=== PATIENT | male | born 1965 | race Caucasian/White ===

== ENCOUNTER 2019-11-18 19:51 | Emergency (ER) | payer MEDICARE, OTHER ==
--- NOTE | 2019-11-18 20:58 | ED ---
General Adult HPI - General Chief complaint: Skin/Abscess/Foreign Body Stated complaint: R Leg infection Time Seen by Provider: 11/18/19 20:18 Source: patient, RN notes reviewed Mode of arrival: ambulatory Limitations: no limitations - History of Present Illness Initial comments: 54-year-old male with a past medical history COPD, diabetes mellitus, hype rtension presents to the emergency department for a chief complaint of erythema on the right knee. Patient has had an area of erythema for about 3 days on the lateral right knee. States it Is making his legs well. States he can bend his knee without difficulty but is somewhat painful to walk on. Denies fevers or chills. Patient started on Bactrim 2 days ago. He denies history of MRSA. He denies history of IV drug abuse.Patient has no other complaints at this time including shortness of breath, chest pain, abdominal pain, nausea or vomiting, headache, or visual changes. - Related Data Home Medications Medication Instructions Recorded Confirmed Acetaminophen [Tylenol Arthritis] 650 mg PO Q4H 11/18/19 11/18/19 Albuterol Inhaler [Ventolin Hfa 2 puff INHALATION RT-QID PRN 11/18/19 11/18/19 Inhaler] Amitriptyline HCl [Elavil] 150 mg PO HS 11/18/19 11/18/19 Atorvastatin [Lipitor] 40 mg PO HS 11/18/19 11/18/19 Calcium/Magnesium/Zinc 2 tab PO TID PRN 11/18/19 11/18/19 [Amqbbaj-Knlrpqglx-Fhlb Tablet] Carvedilol [Coreg] 6.25 mg PO BID 11/18/19 11/18/19 Chlorpheniramine Maleate 4 mg PO Q4H PRN 11/18/19 11/18/19 [Chlor-Trimeton] Ibuprofen [Motrin] 600 mg PO Q6H PRN 11/18/19 11/18/19 Insulin Detemir [Levemir Flextouch] 40 units SQ ACHS 11/18/19 11/18/19 Multivitamins, Thera [Multivitamin 1 tab PO DAILY 11/18/19 11/18/19 (formulary)] Omeprazole [PriLOSEC] 40 mg PO DAILY 11/18/19 11/18/19 Sertraline [Zoloft] 100 mg PO DAILY 11/18/19 11/18/19 Sulfamethox-Tmp 800-160Mg [Bactrim 1 tab PO Q12HR 11/18/19 11/18/19 DS 800-160 mg] Thiamine [Vitamin B-1] 100 mg PO DAILY 11/18/19 11/18/19 amLODIPine [Norvasc] 5 mg PO DAILY 11/18/19 11/18/19 metFORMIN HCL 1,000 mg PO BID-W/MEALS 11/18/19 11/18/19 traZODone HCL 50 - 150 mg PO HS 11/18/19 11/18/19 Previous Rx's Medication Instructions Recorded Cephalexin [Keflex] 500 mg PO Q6H 10 Days #40 cap 11/18/19 Allergies Allergy/AdvReac Type Severity Reaction Status Date / Time No Known Allergies Allergy Verified 11/18/19 21:21 Review of Systems ROS Statement: Those systems with pertinent positive or pertinent negative responses have been documented in the HPI. ROS Other: All systems not noted in ROS Statement are negative. Past Medical History Past Medical History: COPD, Diabetes Mellitus, Hypertension History of Any Multi-Drug Resistant Organisms: None Reported Past Surgical History: No Surgical Hx Reported Past Psychological History: No Psychological Hx Reported Smoking Status: Current every day smoker Past Alcohol Use History: None Reported Past Drug Use History: None Reported General Exam Limitations: no limitations General appearance: alert, in no apparent distress Head exam: Present: atraumatic, normocephalic, normal inspection Eye exam: Present: normal appearance, PERRL, EOMI. Absent: scleral icterus, conjunctival injection, periorbital swelling ENT exam: Present: normal exam, mucous membranes moist Neck exam: Present: normal inspection. Absent: tenderness, meningismus, lymphadenopathy Respiratory exam: Present: normal lung sounds bilaterally. Absent: respiratory distress, wheezes, rales, rhonchi, stridor Cardiovascular Exam: Present: regular rate, normal rhythm, normal heart sounds. Absent: systolic murmur, diastolic murmur, rubs, gallop, clicks Extremities exam: Present: full ROM (Full range of motion of the right knee. Patient is able to walk on her knee however this causes some mild discomfort.), normal capillary refill (Capillary refill less than 2 seconds in the right lower extremity.), other (Patient has a 3 cm x 3 cm area of erythema over the lateral aspect of the right knee. There is no sizable area for drainage.). Absent: tenderness, pedal edema, joint swelling, calf tenderness Course Vital Signs 11/18/19 20:11 Temperature 98.3 F Pulse Rate 94 Respiratory 18 Rate Blood Pressure 134/85 O2 Sat by Pulse 98 Oximetry Medical Decision Making - Medical Decision Making HPI physical exam is recommended. There is no evidence of incisible area to drain. Vitals are stable. CBC CMP are unremarkable. X-ray of the right knee is negative. Patient was evaluated by Dr. Bell. We will add Keflex. It is likely that [employer] hasn't had enough time to work this patient has been on this less than 48 hours. Patient is at [facility] with nursing staff and they will continue to monitor this. He will return here for any worsening symptoms. - Lab Data Result diagrams: 11/18/19 21:54 11/18/19 21:54 Lab Results 11/18/19 11/18/19 11/18/19 Range/Units 21:54 21:54 21:54 WBC 9.1 (3.8-10.6) k/uL RBC 3.88 L (4.30-5.90) m/uL Hgb 12.2 L (13.0-17.5) gm/dL Hct 36.9 L (39.0-53.0) % MCV 95.1 (80.0-100.0) fL MCH 31.5 (25.0-35.0) pg MCHC 33.1 (31.0-37.0) g/dL RDW 12.6 (11.5-15.5) % Plt Count 313 (150-450) k/uL Neutrophils % 65 % Lymphocytes % 25 % Monocytes % 5 % Eosinophils % 3 % Basophils % 1 % Neutrophils # 5.9 (1.3-7.7) k/uL Lymphocytes # 2.3 (1.0-4.8) k/uL Monocytes # 0.4 (0-1.0) k/uL Eosinophils # 0.3 (0-0.7) k/uL Basophils # 0.1 (0-0.2) k/uL Sodium 137 (137-145) mmol/L Potassium 5.0 (3.5-5.1) mmol/L Chloride 104 (98-107) mmol/L Carbon Dioxide 24 (22-30) mmol/L Anion Gap 9 mmol/L BUN 28 H (9-20) mg/dL Creatinine 0.89 (0.66-1.25) mg/dL Est GFR (CKD-EPI)AfAm >90 (>60 ml/min/1.73 sqM) Est GFR (CKD-EPI)NonAf >90 (>60 ml/min/1.73 sqM) Glucose 93 (74-99) mg/dL Plasma Lactic Acid Surjit 1.4 (0.7-2.0) mmol/L Calcium 9.6 (8.4-10.2) mg/dL Total Bilirubin 0.3 (0.2-1.3) mg/dL AST 28 (17-59) U/L ALT 20 (4-49) U/L Alkaline Phosphatase 104 (38-126) U/L Total Protein 7.5 (6.3-8.2) g/dL Albumin 4.5 (3.5-5.0) g/dL Disposition Clinical Impression: Cellulitis Disposition: HOME SELF-CARE Condition: Poor Instructions (If sedation given, give patient instructions): Cellulitis (ED) Additional Instructions: Please take Keflex in addition to Bactrim. Please follow-up with primary care in 1-2 days. Please return here to the emergency room for any worsening symptoms such as fevers or inability to bend your knee. If redness is spreading past where it is already located then return to the emergency department as well. Prescriptions: Cephalexin [Keflex] 500 mg PO Q6H 10 Days #40 cap Is patient prescribed a controlled substance at d/c from ED?: No Referrals: Lisa Tillman MD [REFERRING] - 1-2 days Time of Disposition: 22:59
[2019-11-18] MEDS ORDERED: cefTRIAXone IN SWFI 1,000 MG/10 ML SYRINGE IVP STA (21:23)
--- NOTE | 2019-11-18 22:03 | XR ---
EXAMINATION TYPE: XR knee complete RT DATE OF EXAM: 11/18/2019 COMPARISON: NONE HISTORY: Right leg abscess TECHNIQUE: 3 views FINDINGS: I see no fracture nor dislocation. Joint spaces are normal. There is no sign of knee joint effusion. Soft tissues appear normal. IMPRESSION: Negative right knee exam. No fracture. No evidence of a soft tissue mass.
[2019-11-18 22:13] LABS: Basophils # (A) 0.1 k/uL (0-0.2); Basophils % (A) 1 %; Eosinophils # (A) 0.3 k/uL (0-0.7); Eosinophils % (A) 3 %; HCT 36.9 % (39.0-53.0); HGB 12.2 gm/dL (13.0-17.5); Lymphocytes # (A) 2.3 k/uL (1.0-4.8); Lymphocytes % (A) 25 %; MCH 31.5 pg (25.0-35.0); MCHC 33.1 g/dL (31.0-37.0); MCV 95.1 fL (80.0-100.0); Mean Platelet Volume 7.2; Monocytes # (A) 0.4 k/uL (0-1.0); Monocytes % (A) 5 %; Neutrophils # (A) 5.9 k/uL (1.3-7.7); Neutrophils % (A) 65 %; Platelet Count 313 k/uL (150-450); RBC 3.88 m/uL (4.30-5.90); RDW 12.6 % (11.5-15.5); WBC 9.1 k/uL (3.8-10.6)
[2019-11-18 22:22] LABS: ALT 20 U/L (4-49); AST 28 U/L (17-59); African American GFR (CKD) >90 (>60 ml/min/1.73 sqM); Albumin 4.5 g/dL (3.5-5.0); Alkaline Phosphatase 104 U/L (38-126); Anion Gap 9 mmol/L; Blood Urea Nitrogen 28 mg/dL (9-20); Calcium 9.6 mg/dL (8.4-10.2); Carbon Dioxide 24 mmol/L (22-30); Chloride 104 mmol/L (98-107); Glucose 93 mg/dL (74-99); Non-African American GFR(CKD) >90 (>60 ml/min/1.73 sqM); Sodium 137 mmol/L (137-145); Total Bilirubin 0.3 mg/dL (0.2-1.3); Total Protein 7.5 g/dL (6.3-8.2)
[2019-11-18 23:47] VITALS: BP 131/82; PULSE 90; RESP 17; TEMP 93.3
== END 2019-11-18 23:43 | disposition home or self-care (01) ==
LOC: EC 19:51
DX: L03.115 Cellulitis of right lower limb (principal); J44.9 Chronic obstructive pulmonary disease, unspecified; E11.9 Type 2 diabetes mellitus without complications; I10 Essential (primary) hypertension; F17.200 Nicotine dependence, unspecified, uncomplicated; Z79.899 Other long term (current) drug therapy; Z79.4 Long term (current) use of insulin
CPT/HCPCS: 36415; 80053; 83605; 85025; 87040; 73562; 99283; 96374; J0696

== ENCOUNTER 2019-11-21 21:53 | Observation (INO) | payer MEDICARE, OTHER ==
--- NOTE | 2019-11-21 23:08 | XR ---
EXAMINATION TYPE: XR knee complete RT DATE OF EXAM: 11/21/2019 COMPARISON: 11/18/2019 HISTORY: Knee pain right knee wo TECHNIQUE: 3 views FINDINGS: I see no fracture nor dislocation. Joint spaces are normal. There is no sign of knee joint effusion. There are no pathologic calcifications. IMPRESSION: Negative right knee exam. No sign of osteomyelitis. No change.
[2019-11-21] MEDS ORDERED: SODIUM CHLORIDE 0.9% 500 ML 500 ML IV STA (23:16)
--- NOTE | 2019-11-21 23:20 | ED ---
Wound/Laceration HPI - General Source: patient Mode of arrival: ambulatory Limitations: no limitations <Rosemary Rudd - Last Filed: 11/22/19 01:33> <Brittany Davis - Last Filed: 11/25/19 17:00> - General Chief Complaint: Wound/Laceration Stated Complaint: Leg Wounds Time Seen by Provider: 11/21/19 23:04 - History of Present Illness Initial Comments: Patient is a 54-year-old male presenting to the emergency Department with complaints of a wound on his right leg, next to his knee. Patient states has been there for a proximal 9-10 days. He was in the ER 4 days ago and was started on Bactrim and Keflex and he has been taking them. Patient states the wound is getting worse, it is now draining yellow, malodorous, drainage. He states his right lower leg is also become swollen and painful. He also had a fever earlier today. Patient is here from [place]. Patient states they would not take him back until his leg wound is cleared. Patient states he lives in [place]. He does admit to being a diabetic, hypertensive. He denies chest pain, shortness of breath, abdominal pain, nausea, vomiting. He has no further complaints at this time. Upon arrival to the ER, his vital signs are stable. (Rosemary Rudd) - Related Data Home Medications Medication Instructions Recorded Confirmed Acetaminophen [Tylenol Arthritis] 650 mg PO Q4H 11/18/19 11/22/19 Albuterol Inhaler [Ventolin Hfa 2 puff INHALATION RT-QID PRN 11/18/19 11/22/19 Inhaler] Amitriptyline HCl [Elavil] 150 mg PO HS 11/18/19 11/22/19 Atorvastatin [Lipitor] 40 mg PO HS@2200 11/18/19 11/22/19 Calcium/Magnesium/Zinc 2 tab PO TID PRN 11/18/19 11/22/19 [Jsizpkr-Ljxueivxg-Vtzd Tablet] Carvedilol [Coreg] 6.25 mg PO BID@0600,1700 11/18/19 11/22/19 Chlorpheniramine Maleate 4 mg PO Q4H PRN 11/18/19 11/22/19 [Chlor-Trimeton] Ibuprofen [Motrin] 600 mg PO Q6H PRN 11/18/19 11/22/19 Insulin Detemir [Levemir Flextouch] 40 units SQ AC-BRKFST 11/18/19 11/22/19 Multivitamins, Thera [Multivitamin 1 tab PO DAILY 11/18/19 11/22/19 (formulary)] Omeprazole [PriLOSEC] 40 mg PO DAILY@59911/18/19 11/22/19 Sertraline [Zoloft] 100 mg PO DAILY@59911/18/19 11/22/19 Sulfamethox-Tmp 800-160Mg [Bactrim 1 tab PO Q12HR 11/18/19 11/22/19 DS 800-160 mg] amLODIPine [Norvasc] 5 mg PO DAILY@59911/18/19 11/22/19 metFORMIN HCL 1,000 mg PO BID-W/MEALS 11/18/19 11/22/19 traZODone HCL 50 - 150 mg PO HS 11/18/19 11/22/19 Insulin Detemir (Levemir) [Levemir] 45 unit SQ HS 11/22/19 11/22/19 Previous Rx's Medication Instructions Recorded Clindamycin [Cleocin] 450 mg PO Q6H 7 Days #28 cap 11/23/19 Nicotine 21Mg/24Hr Patch [Habitrol] 1 patch TRANSDERM DAILY 30 Days 11/23/19 #30 patch Allergies Allergy/AdvReac Type Severity Reaction Status Date / Time No Known Allergies Allergy Verified 11/22/19 06:56 Review of Systems ROS Other: All systems not noted in ROS Statement are negative. <Rosemary Rudd - Last Filed: 11/22/19 01:33> ROS Other: All systems not noted in ROS Statement are negative. <Brittany Davis - Last Filed: 11/25/19 17:00> ROS Statement: Those systems with pertinent positive or pertinent negative responses have been documented in the HPI. Past Medical History Past Medical History: COPD, Diabetes Mellitus, Hypertension History of Any Multi-Drug Resistant Organisms: None Reported Past Surgical History: No Surgical Hx Reported Past Psychological History: No Psychological Hx Reported Smoking Status: Current every day smoker Past Alcohol Use History: None Reported Past Drug Use History: Prescription Drug Abuse <Rosemary Rudd - Last Filed: 11/22/19 01:33> General Exam Limitations: no limitations <Rosemary Rudd - Last Filed: 11/22/19 01:33> - General Exam Comments Initial Comments: GENERAL: Well-appearing, well-nourished and in no acute distress. HEAD: Atraumatic, normocephalic. EYES: Pupils equal round and reactive to light, extraocular movements intact, sclera anicteric, conjunctiva are normal. ENT: TMs normal, nares patent, oropharynx clear without exudates. Moist mucous membranes. NECK: Normal range of motion, supple without lymphadenopathy or JVD. LUNGS: Breath sounds clear to auscultation bilaterally and equal. No wheezes rales or rhonchi. HEART: Regular rate and rhythm without murmurs, rubs or gallops. ABDOMEN: Soft, nontender, normoactive bowel sounds. No guarding, no rebound. No masses appreciated. : Deferred EXTREMITIES: Patient decreased range of motion of his right knee secondary to pain and swelling. He does have some mild to moderate swelling of his right lower leg. No clubbing or cyanosis. NEUROLOGICAL: Normal speech, normal gait. PSYCH: Normal mood, normal affect. SKIN: Warm, Dry, normal turgor. Patient has a 1.5cm x 1.5cm wound to his lateral rig ht knee that is draining yellow, purulent fluid. His knee is warm to the touch, his right lower leg is swelling compared to left. There is some erythematous around the area. (Rosemary Rudd) Course Vital Signs 11/21/19 11/22/19 11/22/19 21:55 06:23 08:58 Temperature 98.1 F 98.0 F Pulse Rate 85 80 72 Respiratory 17 17 18 Rate Blood Pressure 131/77 130/70 129/77 O2 Sat by Pulse 98 97 96 Oximetry 11/22/19 11/22/19 11/22/19 08:59 09:00 10:00 Temperature Pulse Rate 74 70 72 Respiratory 17 17 17 Rate Blood Pressure 134/86 134/86 125/74 O2 Sat by Pulse 97 97 97 Oximetry 11/22/19 11:00 Temperature Pulse Rate 70 Respiratory 17 Rate Blood Pressure 112/63 O2 Sat by Pulse 97 Oximetry Medical Decision Making - Lab Data Result diagrams: 11/21/19 23:07 11/21/19 23:07 <Rosemary Rudd - Last Filed: 11/22/19 01:33> - Lab Data Result diagrams: 11/22/19 07:27 11/22/19 07:27 <Brittany Davis - Last Filed: 11/25/19 17:00> - Medical Decision Making Patient is a 54-year-old male with history of diabetes, hypertension presenting with a wound on his right knee that has failed outpatient antibiotics, Bactrim and Keflex. He had a fever today, his vitals are stable upon arrival. Exam reveals an abscess to the right lateral knee, 1.5 cm x 1.5 cm that is draining purulent fluid as well as some erythematous extending down his right leg as well as some swelling. Lab work shows a normal white count, lactic acid is 1.2, CRP is 17.7. Knee x-ray shows no acute abnormalities. Patient was started on Rocephin, he will be admitted for failed outpatient treatment. Patient was accepted by Dr. Gamino. He is in agreement with this plan of care. Case d iscussed with Dr. Davis. (Rosemary Rudd) I was available for consultation in the emergency department. The history and physical exam were done by the midlevel provider. I was consulted for this patients care. I reviewed the case with the midlevel provider and based on their presentation of the patient, I agree with the assessment, medical decision making and plan of care as documented. Chart was dictated using [employer] dictation software. Attempts were made to mayo ect any dictation errors however some typographical errors may persist. Patient was seen during a national state of emergency due to the Covid-19 pandemic. (Brittany Davis) - Lab Data Lab Results 11/21/19 11/21/19 11/21/19 Range/Units 23:06 23:07 23:07 WBC 8.6 (3.8-10.6) k/uL RBC 3.58 L (4.30-5.90) m/uL Hgb 11.5 L (13.0-17.5) gm/dL Hct 34.6 L (39.0-53.0) % MCV 96.7 (80.0-100.0) fL MCH 32.0 (25.0-35.0) pg MCHC 33.1 (31.0-37.0) g/dL RDW 12.5 (11.5-15.5) % Plt Count 297 (150-450) k/uL Neutrophils % 62 % Lymphocytes % 25 % Monocytes % 6 % Eosinophils % 4 % Basophils % 1 % Neutrophils # 5.3 (1.3-7.7) k/uL Lymphocytes # 2.2 (1.0-4.8) k/uL Monocytes # 0.5 (0-1.0) k/uL Eosinophils # 0.4 (0-0.7) k/uL Basophils # 0.1 (0-0.2) k/uL ESR 20 H (0-15) mm/hr Sodium 135 L (137-145) mmol/L Potassium 4.4 (3.5-5.1) mmol/L Chloride 102 (98-107) mmol/L Carbon Dioxide 26 (22-30) mmol/L Anion Gap 7 mmol/L BUN 23 H (9-20) mg/dL Creatinine 0.92 (0.66-1.25) mg/dL Est GFR (CKD-EPI)AfAm >90 (>60 ml/min/1.73 sqM) Est GFR (CKD-EPI)NonAf >90 (>60 ml/min/1.73 sqM) Glucose 102 H (74-99) mg/dL Plasma Lactic Acid Surjit (0.7-2.0) mmol/L Calcium 9.1 (8.4-10.2) mg/dL Total Bilirubin 0.1 L (0.2-1.3) mg/dL AST 43 (17-59) U/L ALT 36 (4-49) U/L Alkaline Phosphatase 139 H (38-126) U/L C-Reactive Protein 17.7 H (<10.0) mg/L Total Protein 6.7 (6.3-8.2) g/dL Albumin 3.9 (3.5-5.0) g/dL 11/21/19 Range/Units 23:07 WBC (3.8-10.6) k/uL RBC (4.30-5.90) m/uL Hgb (13.0-17.5) gm/dL Hct (39.0-53.0) % MCV (80.0-100.0) fL MCH (25.0-35.0) pg MCHC (31.0-37.0) g/dL RDW (11.5-15.5) % Plt Count (150-450) k/uL Neutrophils % % Lymphocytes % % Monocytes % % Eosinophils % % Basophils % % Neutrophils # (1.3-7.7) k/uL Lymphocytes # (1.0-4.8) k/uL Monocytes # (0-1.0) k/uL Eosinophils # (0-0.7) k/uL Basophils # (0-0.2) k/uL ESR (0-15) mm/hr Sodium (137-145) mmol/L Potassium (3.5-5.1) mmol/L Chloride (98-107) mmol/L Carbon Dioxide (22-30) mmol/L Anion Gap mmol/L BUN (9-20) mg/dL Creatinine (0.66-1.25) mg/dL Est GFR (CKD-EPI)AfAm (>60 ml/min/1.73 sqM) Est GFR (CKD-EPI)NonAf (>60 ml/min/1.73 sqM) Glucose (74-99) mg/dL Plasma Lactic Acid Surjit 1.2 (0.7-2.0) mmol/L Calcium (8.4-10.2) mg/dL Total Bilirubin (0.2-1.3) mg/dL AST (17-59) U/L ALT (4-49) U/L Alkaline Phosphatase (38-126) U/L C-Reactive Protein (<10.0) mg/L Total Protein (6.3-8.2) g/dL Albumin (3.5-5.0) g/dL Disposition Decision Date: 11/22/19 Decision Time: :29 <Rosemary Rudd - Last Filed: 11/22/19 01:33> <Brittany Davis - Last Filed: 11/25/19 17:00> Clinical Impression: Cellulitis and abscess of right leg Disposition: ADMITTED IP TO THIS [facility] Condition: Stable
[2019-11-21 23:37] LABS: Basophils # (A) 0.1 k/uL (0-0.2); Basophils % (A) 1 %; Eosinophils # (A) 0.4 k/uL (0-0.7); Eosinophils % (A) 4 %; HCT 34.6 % (39.0-53.0); HGB 11.5 gm/dL (13.0-17.5); Lymphocytes # (A) 2.2 k/uL (1.0-4.8); Lymphocytes % (A) 25 %; MCHC 33.1 g/dL (31.0-37.0); MCV 96.7 fL (80.0-100.0); Mean Platelet Volume 7.2; Monocytes # (A) 0.5 k/uL (0-1.0); Monocytes % (A) 6 %; Neutrophils # (A) 5.3 k/uL (1.3-7.7); Neutrophils % (A) 62 %; Platelet Count 297 k/uL (150-450); RBC 3.58 m/uL (4.30-5.90); RDW 12.5 % (11.5-15.5); WBC 8.6 k/uL (3.8-10.6)
[2019-11-21 23:58] LABS: Anion Gap 7 mmol/L; Blood Urea Nitrogen 23 mg/dL (9-20); Carbon Dioxide 26 mmol/L (22-30); Chloride 102 mmol/L (98-107); Glucose 102 mg/dL (74-99); Potassium 4.4 mmol/L (3.5-5.1); Sodium 135 mmol/L (137-145)
[2019-11-21 23:59] LABS: ALT 36 U/L (4-49); AST 43 U/L (17-59); African American GFR (CKD) >90 (>60 ml/min/1.73 sqM); Albumin 3.9 g/dL (3.5-5.0); Alkaline Phosphatase 139 U/L (38-126); C Reactive Protein 17.7 mg/L (<10.0); Calcium 9.1 mg/dL (8.4-10.2); Non-African American GFR(CKD) >90 (>60 ml/min/1.73 sqM); Total Bilirubin 0.1 mg/dL (0.2-1.3); Total Protein 6.7 g/dL (6.3-8.2)
[2019-11-22] MEDS ORDERED: KETOROLAC 30 MG/ML 1 ML VIAL IVP STA (01:24)
[2019-11-22] MEDS ORDERED: ONDANSETRON 4 MG/2 ML VIAL IVP PRN (01:29)
[2019-11-22] MEDS ORDERED: ACETAMINOPHEN TAB 325 MG TAB PO PRN (01:29)
[2019-11-22] MEDS ORDERED: KETOROLAC 30 MG/ML 1 ML VIAL IVP PRN (01:29)
[2019-11-22] MEDS ORDERED: NALOXONE 0.4 MG/ML 1 ML VIAL IV PRN (01:29)
[2019-11-22] MEDS: SODIUM CHLORIDE 0.9% 1,000 ML IV SCH ×2 (02:01→19:23)
--- NOTE | 2019-11-22 05:12 | P.HPIM ---
History of Present Illness H&P Date: 11/22/19 The patient was seen and examined in the emergency room at 3 AM on 11/21 Patient is a 54-year-old male with a PMH of COPD, hypertension, type II DM, and possible CHF presented to the ED from [place] with complaints of right leg draining ulcer. The patient notes that the ulcer initially appeared roughly 9- 10 days ago, for which he was seen in the ED on 11/18, and was discharged back with Keflex and Bactrim. He reports compliance with the medications, though reports that the ulcer has worsened and now is draining a yellow malodorous discharge. He notes that his entire right leg feels swollen and painful. He reported feeling some chills earlier today, though otherwise denied any addition al complaints. He is able to bear weight on the leg, though notes that it is painful. He denied trauma to the site, though did report a history of multiple ulcers in different areas including his legs and arms, for which he never sought medical attention. Denied IV drug use, and reports that he is at [place] due to prescription drug abuse. He denied any additional complaints including chest pain, shortness of breath, fever, or chills. Denied cough, nausea, vomiting, or palpitations. Denied abdominal pain or diarrhea. In the ED, a right knee x-ray was unremarkable. Laboratory evaluation revealed a WBC count of 8.6, hemoglobin 11.5, platelets 97, sodium 135, potassium 4.4, BUN 23, creatinine 0.92, glucose 102, CRP 17.7, with alkaline phosphatase 139. He is being admitted for right leg cellulitis with failed outpatient therapy. Review of Systems Pertinent positives and negatives as discussed in HPI, a complete review of systems was performed and all other systems are negative. Past Medical History Past Medical History: COPD, Diabetes Mellitus, Hypertension History of Any Multi-Drug Resistant Organisms: None Reported Past Surgical History: No Surgical Hx Reported Past Psychological History: No Psychological Hx Reported Smoking Status: Current every day smoker Past Alcohol Use History: None Reported Past Drug Use History: Prescription Drug Abuse Medications and Allergies Home Medications Medication Instructions Recorded Confirmed Type Acetaminophen [Tylenol Arthritis] 650 mg PO Q4H 11/18/19 11/18/19 History Albuterol Inhaler [Ventolin Hfa 2 puff INHALATION RT-QID PRN 11/18/19 11/18/19 History Inhaler] Amitriptyline HCl [Elavil] 150 mg PO HS 11/18/19 11/18/19 History Atorvastatin [Lipitor] 40 mg PO HS 11/18/19 11/18/19 History Calcium/Magnesium/Zinc 2 tab PO TID PRN 11/18/19 11/18/19 History [Ebixzfd-Lmmznqeby-Xhjk Tablet] Carvedilol [Coreg] 6.25 mg PO BID 11/18/19 11/18/19 History Cephalexin [Keflex] 500 mg PO Q6H 10 Days #40 cap 11/18/19 Rx Chlorpheniramine Maleate 4 mg PO Q4H PRN 11/18/19 11/18/19 History [Chlor-Trimeton] Ibuprofen [Motrin] 600 mg PO Q6H PRN 11/18/19 11/18/19 History Insulin Detemir [Levemir Flextouch] 40 units SQ ACHS 11/18/19 11/18/19 History Multivitamins, Thera [Multivitamin 1 tab PO DAILY 11/18/19 11/18/19 History (formulary)] Omeprazole [PriLOSEC] 40 mg PO DAILY 11/18/19 11/18/19 History Sertraline [Zoloft] 100 mg PO DAILY 11/18/19 11/18/19 History Sulfamethox-Tmp 800-160Mg [Bactrim 1 tab PO Q12HR 11/18/19 11/18/19 History DS 800-160 mg] Thiamine [Vitamin B-1] 100 mg PO DAILY 11/18/19 11/18/19 History amLODIPine [Norvasc] 5 mg PO DAILY 11/18/19 11/18/19 History metFORMIN HCL 1,000 mg PO BID-W/MEALS 11/18/19 11/18/19 History traZODone HCL 50 - 150 mg PO HS 11/18/19 11/18/19 History Allergies Allergy/AdvReac Type Severity Reaction Status Date / Time No Known Allergies Allergy Verified 11/18/19 21:21 Physical Exam Vitals: Vital Signs Temp Pulse Resp BP Pulse Ox 11/21/19 21:55 98.1 F 85 17 131/77 98 Intake and Output 11/21/19 11/21/19 11/22/19 14:59 22:59 06:59 Other: Weight 104.326 kg General: non toxic, no distress, appears at stated age, obese Derm: Right leg lateral to the knee ulcer 2 cm circular with surrounding erythema and warmth with purulent drainage, warm, dry Head: atraumatic, normocephalic, symmetric Eyes: EOMI, no lid lag, anicteric sclera, pupils equal round reactive to light ENT: Nose and ears atraumatic, no thrush, no pharyngeal erythema Neck: No thyromegaly, no cervical lymphadenopathy, trachea midline, supple Mouth: no lip lesion, mucus membranes moist Cardiovascular: S1S2 reg, no murmur, positive posterior tibial pulse bilateral, no edema, capillary refill less than 2 seconds Lungs: CTA bilateral, no rhonchi, no rales , no accessory muscle use Abdominal: soft, nontender to palpation, no guarding, no appreciable organomegaly, normal bowel sounds Ext: no gross muscle atrophy, muscle strength 5 out of 5 in all 4 extremities grossly, right leg mild tenderness on palpation, overlying skin not tense with pulses palpable bilaterally, no contractures, Neuro: CN II-XI grossly intact, light touch intact all 4 extremities, finger to nose within normal limits, Psych: Alert, oriented, appropriate affect Results CBC & Chem 7: 11/21/19 23:07 11/21/19 23:07 Labs: Abnormal Lab Results - Last 24 Hours (Table) 11/21/19 11/21/19 11/21/19 Range/Units 23:06 23:07 23:07 RBC 3.58 L (4.30-5.90) m/uL Hgb 11.5 L (13.0-17.5) gm/dL Hct 34.6 L (39.0-53.0) % ESR 20 H (0-15) mm/hr Sodium 135 L (137-145) mmol/L BUN 23 H (9-20) mg/dL Glucose 102 H (74-99) mg/dL Total Bilirubin 0.1 L (0.2-1.3) mg/dL Alkaline Phosphatase 139 H (38-126) U/L C-Reactive Protein 17.7 H (<10.0) mg/L Assessment and Plan Plan: Right leg cellulitis, failed outpatient therapy -Start on Clindamycin -Follow up blood cultures -Consult infectious disease Type II DM -Check A1c -Lispro insulin sliding scale and blood glucose monitoring Chronic conditions: Hypertension, hyperlipidemia, COPD -Continue with home meds DVT prophylaxis -Heparin subq The patient is admitted with an anticipated less than 2 midnight stay for evaluation of cellulitis CODE STATUS: Full Code Discussed with: Patient Anticipated discharge date: 1-[address]: [place] A total of 35 minutes was spent on the care of this complex patient more than 5 0% of the time was spent in counseling and care coordination.
[2019-11-22] MEDS: CLINDAMYCIN 600 MG in DEXTROSE 5% IN WATER 50 ML IVPB SCH ×8 (06:24→23:47)
[2019-11-22 07:43] LABS: HCT 34.3 % (39.0-53.0); HGB 11.3 gm/dL (13.0-17.5); MCH 31.4 pg (25.0-35.0); MCV 94.9 fL (80.0-100.0); Mean Platelet Volume 7.3; Platelet Count 274 k/uL (150-450); RBC 3.61 m/uL (4.30-5.90); RDW 12.6 % (11.5-15.5); WBC 5.2 k/uL (3.8-10.6)
[2019-11-22 08:06] LABS: African American GFR (CKD) >90 (>60 ml/min/1.73 sqM); Anion Gap 6 mmol/L; Blood Urea Nitrogen 20 mg/dL (9-20); Calcium 8.6 mg/dL (8.4-10.2); Carbon Dioxide 26 mmol/L (22-30); Chloride 104 mmol/L (98-107); Glucose 154 mg/dL (74-99); Non-African American GFR(CKD) >90 (>60 ml/min/1.73 sqM); Potassium 4.2 mmol/L (3.5-5.1); Sodium 136 mmol/L (137-145)
[2019-11-22 09:30] LABS: Glucose,Whole Blood 132 mg/dL (75-99)
[2019-11-22] MEDS: INSULIN ASPART (NovoLOG) 100 UNIT/ML VIAL SQ SCH ×3 (09:32→18:06)
[2019-11-22] MEDS: HEPARIN SODIUM,PORCINE 5,000 UNIT/ML 1 ML VIAL SQ SCH ×3 (09:32→23:47)
[2019-11-22 13:01] LABS: Hemoglobin A1C 7.7 % (4.0-6.0)
[2019-11-22 17:36] LABS: Glucose,Whole Blood 244 mg/dL (75-99)
[2019-11-22] MEDS: NICOTINE 21MG/24HR PATCH TRANSDERM SCH (21:37)
--- NOTE | 2019-11-22 23:41 | P.CONS ---
History of Present Illness - Reason for Consult Consult date: 11/22/19 Right lateral leg cellulitis Requesting physician: Prakash Gamino - Chief Complaint Right leg pain swelling redness x few days - History of Present Illness Patient is a 54-year-old male currently undergoing rehab at [facility] has been brought into the ER for evaluation of right lateral leg pain swelling and redness that has been going on for the last few days patient denies having history of any trauma. Has started as a pimple that has gradually increased in size to becoming painful swollen and red and she described the pain to be throbbing on standard tendency with the loculated radiation the decision swelling and redness but no drainage patient was seen for similar symptom in this year about 4 days ago and the patient was advised oral Keflex and Bactrim DS however the patient did not have any improvement and the patient was brought back to the Hospital for further management of the same, patient wound to the has been afebrile his white count has been normal he did have x-rays of the leg which were negative for any bony changes patient has been started on clindamycin IV 600 every 8 infection it was consulted for further management of antibiotic therapy patient does report overall improvement in the pain swelling since he has been started on antibiotics Review of Systems Positive point has been mentioned in the HPI rest of the systems are negative Past Medical History Past Medical History: Coronary Artery Disease (CAD), COPD, CVA/TIA, Diabetes Mellitus, Eye Disorder, GERD/Reflux, Hyperlipidemia, Hypertension, Pneumonia, Renal Disease Additional Past Medical History / Comment(s): IDDM type II, neuropathy bilateral hands/legs and feet, TIA, bilateral glaucoma, benign colon polyps, recent constipation, nephrolithiasis-passed on his own, chronic low back pain-PT REQUESTS NO NARCOTICS TO BE GIVEN TO HIM. History of Any Multi-Drug Resistant Organisms: None Reported Past Surgical History: Heart Catheterization Additional Past Surgical History / Comment(s): Colonoscopy with benign polypectomies. Past Anesthesia/Blood Transfusion Reactions: No Reported Reaction Smoking Status: Current every day smoker - Past Family History Father Family Medical History: Cancer Additional Family Medical History / Comment(s): Father from cancer-pt cannot recall type. Mother Family Medical History: No Reported History Additional Family Medical History / Comment(s): Mother lived to be 83 yrs old. Medications and Allergies Home Medications Medication Instructions Recorded Confirmed Type Acetaminophen [Tylenol Arthritis] 650 mg PO Q4H 11/18/19 11/22/19 History Albuterol Inhaler [Ventolin Hfa 2 puff INHALATION RT-QID PRN 11/18/19 11/22/19 History Inhaler] Amitriptyline HCl [Elavil] 150 mg PO HS 11/18/19 11/22/19 History Atorvastatin [Lipitor] 40 mg PO HS@2200 11/18/19 11/22/19 History Calcium/Magnesium/Zinc 2 tab PO TID PRN 11/18/19 11/22/19 History [Smphknx-Bvjpoqzkb-Ufja Tablet] Carvedilol [Coreg] 6.25 mg PO BID@0600,1700 11/18/19 11/22/19 History Chlorpheniramine Maleate 4 mg PO Q4H PRN 11/18/19 11/22/19 History [Chlor-Trimeton] Ibuprofen [Motrin] 600 mg PO Q6H PRN 11/18/19 11/22/19 History Insulin Detemir [Levemir Flextouch] 40 units SQ AC-BRKFST 11/18/19 11/22/19 History Multivitamins, Thera [Multivitamin 1 tab PO DAILY 11/18/19 11/22/19 History (formulary)] Omeprazole [PriLOSEC] 40 mg PO DAILY@59911/18/19 11/22/19 History Sertraline [Zoloft] 100 mg PO DAILY@59911/18/19 11/22/19 History Sulfamethox-Tmp 800-160Mg [Bactrim 1 tab PO Q12HR 11/18/19 11/22/19 History DS 800-160 mg] amLODIPine [Norvasc] 5 mg PO DAILY@59911/18/19 11/22/19 History metFORMIN HCL 1,000 mg PO BID-W/MEALS 11/18/19 11/22/19 History traZODone HCL 50 - 150 mg PO HS 11/18/19 11/22/19 History Insulin Detemir (Levemir) [Levemir] 45 unit SQ HS 11/22/19 11/22/19 History Allergies Allergy/AdvReac Type Severity Reaction Status Date / Time No Known Allergies Allergy Verified 11/22/19 06:56 Physical Exam Vitals: Vital Signs Temp Pulse Resp BP Pulse Ox 11/22/19 11:00 70 17 112/63 97 11/22/19 10:00 72 17 125/74 97 11/22/19 09:00 70 17 134/86 97 11/22/19 08:59 74 17 134/86 97 11/22/19 08:58 98.0 F 72 18 129/77 96 11/22/19 06:23 80 17 130/70 97 11/21/19 21:55 98.1 F 85 17 131/77 98 Intake and Output 11/22/19 11/22/19 11/22/19 06:59 14:59 22:59 Other: Weight 104.326 kg GENERAL DESCRIPTION: Middle-aged male lying in bed, no distress. No tachypnea or accessory muscle of respiration use. HEENT: Shows Pallor , no scleral icterus. Oral mucous membrane is dry. No pharyngeal erythema or thrush NECK: Trachea central, no thyromegaly. LUNGS: Unlabored breathing. Clear to auscultation anteriorly. No wheeze or crackle. HEART: S1, S2, regular rate and rhythm. No loud murmur ABDOMEN: Soft, no tenderness , guarding or rigidity, no organomegaly EXTREMITIES: No edema of feet. Right lateral leg just below the knee did have an area of induration and swelling and redness but no purulent drainage SKIN: No rash, no masses palpable. NEUROLOGICAL: The patient is awake, alert, oriented x3, mood and affect normal. Results CBC & Chem 7: 11/22/19 07:27 11/22/19 07:27 Labs: Abnormal Lab Results - Last 24 Hours (Table) 11/21/19 11/21/19 11/21/19 Range/Units 23:06 23:07 23:07 RBC 3.58 L (4.30-5.90) m/uL Hgb 11.5 L (13.0-17.5) gm/dL Hct 34.6 L (39.0-53.0) % ESR 20 H (0-15) mm/hr Sodium 135 L (137-145) mmol/L BUN 23 H (9-20) mg/dL Glucose 102 H (74-99) mg/dL POC Glucose (mg/dL) (75-99) mg/dL Hemoglobin A1c (4.0-6.0) % Total Bilirubin 0.1 L (0.2-1.3) mg/dL Alkaline Phosphatase 139 H (38-126) U/L C-Reactive Protein 17.7 H (<10.0) mg/L 11/22/19 11/22/19 11/22/19 Range/Units 07:27 07:27 07:29 RBC 3.61 L (4.30-5.90) m/uL Hgb 11.3 L (13.0-17.5) gm/dL Hct 34.3 L (39.0-53.0) % ESR (0-15) mm/hr Sodium 136 L (137-145) mmol/L BUN (9-20) mg/dL Glucose 154 H (74-99) mg/dL POC Glucose (mg/dL) (75-99) mg/dL Hemoglobin A1c 7.7 H (4.0-6.0) % Total Bilirubin (0.2-1.3) mg/dL Alkaline Phosphatase (38-126) U/L C-Reactive Protein (<10.0) mg/L 11/22/19 Range/Units 09:28 RBC (4.30-5.90) m/uL Hgb (13.0-17.5) gm/dL Hct (39.0-53.0) % ESR (0-15) mm/hr Sodium (137-145) mmol/L BUN (9-20) mg/dL Glucose (74-99) mg/dL POC Glucose (mg/dL) 132 H (75-99) mg/dL Hemoglobin A1c (4.0-6.0) % Total Bilirubin (0.2-1.3) mg/dL Alkaline Phosphatase (38-126) U/L C-Reactive Protein (<10.0) mg/L Assessment and Plan Assessment: 1- patient with right lower extremity cellulitis in this patient did have an area of folliculitis on the right lateral leg below the knee likely the source of this cellulitis failing outpatient oral Bactrim and Keflex therapy in this patient currently undergoing rehab assisted her heart likely dealing with community associated MRSA the symptoms responded to clindamycin (1) Cellulitis and abscess of right leg Current Visit: Yes Status: Acute Code(s): L03.115 - CELLULITIS OF RIGHT LOWER LIMB; L02.415 - CUTANEOUS ABSCESS OF RIGHT LOWER LIMB SNOMED Code(s): 746743729 Plan: 1- year daily the patient on clindamycin 600 IV every 8 hours in view of clinical response 2-if the area started to drain to obtain culture 3-if the patient continued to improve to finish therapy with oral clindamycin 300 mg every 8 hours for 7 days We will follow on clinical condition and cultures to further adjust medication if needed Thank you for this consultation will follow this patient with you Time with Patient: Greater than 30
[2019-11-23] MEDS: CLINDAMYCIN 600 MG in DEXTROSE 5% IN WATER 50 ML IVPB SCH ×2 (06:10)
[2019-11-23 06:20] LABS: Glucose,Whole Blood 240 mg/dL (75-99)
[2019-11-23] MEDS: INSULIN ASPART (NovoLOG) 100 UNIT/ML VIAL SQ SCH (07:49)
[2019-11-23] MEDS: HEPARIN SODIUM,PORCINE 5,000 UNIT/ML 1 ML VIAL SQ SCH (07:50)
[2019-11-23] MEDS: NICOTINE 21MG/24HR PATCH TRANSDERM SCH (07:50)
[2019-11-23] MEDS: SODIUM CHLORIDE 0.9% 1,000 ML IV SCH (07:50)
[2019-11-23] MEDS ORDERED: NICOTINE 21MG/24HR PATCH TRANSDERM SCH (09:00)
[2019-11-23 09:01] VITALS: BP 144/86; PULSE 83; RESP 16; TEMP 98.2
--- NOTE | 2019-11-23 10:44 | P.DS ---
Providers Date of admission: 11/22/19 01:29 Expected date of discharge: 11/23/19 Attending physician: Prakash Gamino MD Consults: 11/22/19 05:10 Consult Physician Routine Consulting Provider: Shyann Mary Consult Reason/Comments: cellulitis, r leg ulcer Do you want consulting provider notified?: Yes Primary care physician: Stated None Hospital Course: 54-year-old male with a PMH of COPD, hypertension, type II DM, and possible CHF presented to the ED from [facility] with complaints of right leg draining ulcer. The patient notes that the ulcer initially appeared roughly 9-10 days ago, for which he was seen in the ED on 11/18, and was discharged back with Keflex and Bactrim. He reports compliance with the medications, though reports that the ulcer has worsened and was draining a yellow malodorous discharge. He noted that his entire right leg feels swollen and painful. He reported feeling some chills, though otherwise denied any additional complaints. He denied trauma to the site, though did report a history of multiple ulcers in different areas including his legs and arms, for which he never sought medical attention. Denied IV drug use, and reports that he is at [facility] due to prescription drug abuse. He denied any additional complaints including chest pain, shortness of breath, fever, or chills. Denied cough, nausea, vomiting, or palpitations. Denied abdominal pain or diarrhea. In the ED, a right knee x-ray was unremarkable. Exam was significant for a 2 x 2 centimeters furuncle in the right side of the knee. There was no purulent discharge noted. Laboratory evaluation revealed a WBC count of 8.6, hemoglobin 11.5, platelets 97, sodium 135, potassium 4.4, BUN 23, creatinine 0.92, glucose 102, CRP 17.7, with alkaline phosphatase 139. He is being admitted for right leg cellulitis with failed outpatient therapy. Patient was started on IV clindamycin. There was not anything to drain from that furuncle to culture. Patient improved with treatment with IV clindamycin. Today is doing much better. He did not have any fevers throughout the course of the hospitalization. Dr. mary from [place] saw the patient and agreed with the management. He will be discharged home in a stable condition. A prescription for oral clindamycin was provided for him. Patient Condition at Discharge: Stable Plan - Discharge Summary Discharge Rx Participant: No New Discharge Prescriptions: New Nicotine 21Mg/24Hr Patch [Habitrol] 1 patch TRANSDERM DAILY 30 Days #30 patch Clindamycin [Cleocin] 450 mg PO Q6H 7 Days #28 cap Continue metFORMIN HCL 1,000 mg PO BID-W/MEALS Omeprazole [PriLOSEC] 40 mg PO DAILY@0600 traZODone HCL 50 - 150 mg PO HS amLODIPine [Norvasc] 5 mg PO DAILY@0600 Atorvastatin [Lipitor] 40 mg PO HS@2200 Albuterol Inhaler [Ventolin Hfa Inhaler] 2 puff INHALATION RT-QID PRN PRN Reason: ASTHMA Calcium/Magnesium/Zinc [Hveyrlh-Fecwbjgqh-Sxea Tablet] 2 tab PO TID PRN PRN Reason: CRAMPS Ibuprofen [Motrin] 600 mg PO Q6H PRN PRN Reason: Pain Chlorpheniramine Maleate [Chlor-Trimeton] 4 mg PO Q4H PRN PRN Reason: Allergy Symptoms Acetaminophen [Tylenol Arthritis] 650 mg PO Q4H Sulfamethox-Tmp 800-160Mg [Bactrim DS 800-160 mg] 1 tab PO Q12HR Insulin Detemir [Levemir Flextouch] 40 units SQ AC-BRKFST Carvedilol [Coreg] 6.25 mg PO BID@0600,1700 Amitriptyline HCl [Elavil] 150 mg PO HS Sertraline [Zoloft] 100 mg PO DAILY@0600 Multivitamins, Thera [Multivitamin (formulary)] 1 tab PO DAILY Insulin Detemir (Levemir) [Levemir] 45 unit SQ HS Discharge Medication List Acetaminophen [Tylenol Arthritis] 650 mg PO Q4H 11/18/19 [History] Albuterol Inhaler [Ventolin Hfa Inhaler] 2 puff INHALATION RT-QID PRN 11/18/19 [History] Amitriptyline HCl [Elavil] 150 mg PO HS 11/18/19 [History] Atorvastatin [Lipitor] 40 mg PO HS@2200 11/18/19 [History] Calcium/Magnesium/Zinc [Djooddp-Zruxbtcjj-Chvp Tablet] 2 tab PO TID PRN 11/18/19 [History] Carvedilol [Coreg] 6.25 mg PO BID@0600,1700 11/18/19 [History] Chlorpheniramine Maleate [Chlor-Trimeton] 4 mg PO Q4H PRN 11/18/19 [History] Ibuprofen [Motrin] 600 mg PO Q6H PRN 11/18/19 [History] Insulin Detemir [Levemir Flextouch] 40 units SQ AC-BRKFST 11/18/19 [History] Multivitamins, Thera [Multivitamin (formulary)] 1 tab PO DAILY 11/18/19 [History] Omeprazole [PriLOSEC] 40 mg PO DAILY@0600 11/18/19 [History] Sertraline [Zoloft] 100 mg PO DAILY@59911/18/19 [History] Sulfamethox-Tmp 800-160Mg [Bactrim DS 800-160 mg] 1 tab PO Q12HR 11/18/19 [History] amLODIPine [Norvasc] 5 mg PO DAILY@0600 11/18/19 [History] metFORMIN HCL 1,000 mg PO BID-W/MEALS 11/18/19 [History] traZODone HCL 50 - 150 mg PO HS 11/18/19 [History] Insulin Detemir (Levemir) [Levemir] 45 unit SQ HS 11/22/19 [History] Clindamycin [Cleocin] 450 mg PO Q6H 7 Days #28 cap 11/23/19 [Rx] Nicotine 21Mg/24Hr Patch [Habitrol] 1 patch TRANSDERM DAILY 30 Days #30 patch 11/23/19 [Rx] Follow up Appointment(s)/Referral(s): None,Stated [Primary Care Provider] - 1-2 days Shyann Mary MD [STAFF PHYSICIAN] - 1 Week
--- NOTE | 2019-11-23 13:49 | PN ---
PROGRESS NOTE DATE OF SURGERY: 11/23/2019. REASON FOR FOLLOWUP: Right flank abscess cellulitis. INTERVAL HISTORY: Patient was seen on rounds this morning. The patient has been afebrile. Overall pain and discomfort to the right leg has improved. The patient denies having any chest pain. No shortness of breath or cough. He has noticed minimal purulent drainage which was cultured. No nausea, no vomiting. No abdominal pain. No diarrhea. PHYSICAL EXAMINATION: Blood pressure is 144/86, pulse of 83, temperature 98.2. He is 98% on room air. General description: The patient is a middle-aged male lying in bed in no distress. Respiratory system: Unlabored breathing. Clear to auscultation anteriorly. Heart S1, S2. Regular rate and rhythm. Abdomen soft, no tenderness. Left leg swelling and redness has decreased. Minimal drainage on the area which was cultured. LABS: No new labs have been obtained today. DIAGNOSTIC IMPRESSION AND PLAN: Patient with right lateral leg abscess and cellulitis on outpatient Bactrim and Keflex. Overall improvement on clindamycin to continue in the outpatient setting 3 mg 3 times a day for about 7-10 days. Culture has been obtained. Patient advised to call the office in 48 hours, so we can update him on the culture and adjust antibiotic if needed. MMODL / IJN: [id number] /
== END 2019-11-23 10:30 | disposition home or self-care (01) ==
LOC: EC 21:53 → 1SOBS 11-22 01:29
PROVIDERS: ADMIT Internal Medicine; ATTEND Internal Medicine
DX: L03.115 Cellulitis of right lower limb (principal); L02.415 Cutaneous abscess of right lower limb; L02.425 Furuncle of right lower limb; E11.9 Type 2 diabetes mellitus without complications; I10 Essential (primary) hypertension; J44.9 Chronic obstructive pulmonary disease, unspecified; F17.200 Nicotine dependence, unspecified, uncomplicated; Z87.2 Personal history of diseases of the skin and subcutaneous tissue; E78.5 Hyperlipidemia, unspecified; I25.10 Atherosclerotic heart disease of native coronary artery without angina pectoris; K21.9 Gastro-esophageal reflux disease without esophagitis; E11.42 Type 2 diabetes mellitus with diabetic polyneuropathy; H40.9 Unspecified glaucoma; G89.29 Other chronic pain; M54.5 Low back pain; Z03.818 Encounter for observation for suspected exposure to other biological agents ruled out; Z79.899 Other long term (current) drug therapy; Z79.4 Long term (current) use of insulin; Z79.1 Long term (current) use of non-steroidal anti-inflammatories (NSAID); Z86.73 Personal history of transient ischemic attack (TIA), and cerebral infarction without residual deficits; Z87.01 Personal history of pneumonia (recurrent); Z86.010 Personal history of colon polyps; Z87.19 Personal history of other diseases of the digestive system; Z87.442 Personal history of urinary calculi; Z98.890 Other specified postprocedural states; Z80.9 Family history of malignant neoplasm, unspecified
CPT/HCPCS: 96366 ×2; 96372 ×3; 96365; 96367; 99284; 36415; 80053; 80048; 85652; 83605; 85025; 85027; 86140; 87070; 87205; 87077; 87186; 83036; 73562; G0378 ×2; U0003; S4990 ×2; J1644 ×2; J0696; J1885

== ENCOUNTER 2020-12-26 00:42 | Observation (INO) | payer MEDICARE, OTHER ==
[2020-12-26] MEDS ORDERED: DEXTROSE 50% SYRINGE 50 ML IVP STA (00:52)
[2020-12-26] MEDS ORDERED: DEXTROSE 5%-0.45% NACL 1,000 ML IV ONE (00:52)
--- NOTE | 2020-12-26 00:54 | ED ---
Overdose HPI - General Chief Complaint: Overdose Stated Complaint: Overdose Time Seen by Provider: 12/26/20 00:52 Source: EMS, RN notes reviewed, old records reviewed Mode of arrival: EMS Limitations: no limitations - History of Present Illness Initial Comments: This is a 55-year-old male to the ER for evaluation of unintentional overdose, patient was given a 60 unit dose of his Novolin as opposed to his normal nightly 6 units. Patient attempted a symptomatic is able to eat and drink without difficulty MD Complaint: accidental overdose (Patient was given accidental ingestion of 10 times normal insulin dose) -: minutes(s) Intent: unknown How Overdose Was Discovered: other (Accidental, given by staff) Context: Accidental Overdose: medication error Treatments Prior to Arrival: none - Related Data Home Medications Medication Instructions Recorded Confirmed Acetaminophen [Tylenol Arthritis] 650 mg PO Q4H 11/18/19 11/22/19 Albuterol Inhaler [Ventolin Hfa 2 puff INHALATION RT-QID PRN 11/18/19 11/22/19 Inhaler] Amitriptyline HCl [Elavil] 150 mg PO HS 11/18/19 11/22/19 Atorvastatin [Lipitor] 40 mg PO HS@2200 11/18/19 11/22/19 Calcium/Magnesium/Zinc 2 tab PO TID PRN 11/18/19 11/22/19 [Cckozxw-Fhgevsfqb-Egni Tablet] Chlorpheniramine Maleate 4 mg PO Q4H PRN 11/18/19 11/22/19 [Chlor-Trimeton] Ibuprofen [Motrin] 600 mg PO Q6H PRN 11/18/19 11/22/19 Insulin Detemir [Levemir Flextouch] 40 units SQ AC-BRKFST 11/18/19 11/22/19 Multivitamins, Thera [Multivitamin 1 tab PO DAILY 11/18/19 11/22/19 (formulary)] Omeprazole [PriLOSEC] 40 mg PO DAILY@59911/18/19 11/22/19 Sertraline [Zoloft] 100 mg PO DAILY@59911/18/19 11/22/19 Sulfamethox-Tmp 800-160Mg [Bactrim 1 tab PO Q12HR 11/18/19 11/22/19 DS 800-160 mg] amLODIPine [Norvasc] 5 mg PO DAILY@0600 11/18/19 11/22/19 carvediloL [Coreg] 6.25 mg PO BID@0600,1700 11/18/19 11/22/19 metFORMIN HCL [Glucophage] 1,000 mg PO BID-W/MEALS 11/18/19 11/22/19 traZODone HCL 50 - 150 mg PO HS 11/18/19 11/22/19 Insulin Detemir (Levemir) [Levemir] 45 unit SQ HS 11/22/19 11/22/19 Previous Rx's Medication Instructions Recorded Clindamycin [Cleocin] 450 mg PO Q6H 7 Days #28 cap 11/23/19 Nicotine 21Mg/24Hr Patch [Habitrol] 1 patch TRANSDERM DAILY 30 Days 11/23/19 #30 patch Allergies Allergy/AdvReac Type Severity Reaction Status Date / Time No Known Allergies Allergy Verified 12/26/20 00:54 Review of Systems ROS Statement: Those systems with pertinent positive or pertinent negative responses have been documented in the HPI. ROS Other: All systems not noted in ROS Statement are negative. Past Medical History Past Medical History: Coronary Artery Disease (CAD), COPD, CVA/TIA, Diabetes Mellitus, Eye Disorder, GERD/Reflux, Hyperlipidemia, Hypertension, Pneumonia, Renal Disease Additional Past Medical History / Comment(s): IDDM type II, neuropathy bilateral hands/legs and feet, TIA, bilateral glaucoma, benign colon polyps, recent constipation, nephrolithiasis-passed on his own, chronic low back pain-PT REQUESTS NO NARCOTICS TO BE GIVEN TO HIM. History of Any Multi-Drug Resistant Organisms: MRSA Date of last positivie culture/infection: 11/23/19 MDRO Source:: MRSA KNEE Past Surgical History: Heart Catheterization Additional Past Surgical History / Comment(s): Colonoscopy with benign polypectomies. Past Anesthesia/Blood Transfusion Reactions: No Reported Reaction Past Psychological History: Anxiety, Depression Smoking Status: Current every day smoker Past Alcohol Use History: None Reported Past Drug Use History: Opiates, Prescription Drug Abuse - Past Family History Father Family Medical History: Cancer Additional Family Medical History / Comment(s): Father from cancer-pt cannot recall type. Mother Family Medical History: No Reported History Additional Family Medical History / Comment(s): Mother lived to be 83 yrs old. General Exam General appearance: alert, in no apparent distress Head exam: Present: atraumatic, normocephalic, normal inspection Eye exam: Present: normal appearance, PERRL, EOMI. Absent: scleral icterus, conjunctival injection, periorbital swelling ENT exam: Present: normal exam, mucous membranes moist Neck exam: Present: normal inspection. Absent: tenderness, meningismus, lymphadenopathy Respiratory exam: Present: normal lung sounds bilaterally. Absent: respiratory distress, wheezes, rales, rhonchi, stridor Cardiovascular Exam: Present: regular rate, normal rhythm, normal heart sounds. Absent: systolic murmur, diastolic murmur, rubs, gallop, clicks GI/Abdominal exam: Present: soft, normal bowel sounds. Absent: distended, tenderness, guarding, rebound, rigid Extremities exam: Present: normal inspection, full ROM, normal capillary refill. Absent: tenderness, pedal edema, joint swelling, calf tenderness Back exam: Present: normal inspection Neurological exam: Present: alert, oriented X3, CN II-XII intact Psychiatric exam: Present: normal affect, normal mood Skin exam: Present: warm, dry, intact, normal color. Absent: rash Course Vital Signs 12/26/20 00:47 Temperature 97.8 F Pulse Rate 73 Respiratory 18 Rate Blood Pressure 146/77 O2 Sat by Pulse 96 Oximetry - Reevaluation(s) Reevaluation #1: 12/26/20 00:54 Medical record is reviewed Reevaluation #2: 12/26/20 00:54 Patient is fed here in the ER and started on D5 half dextrose Medical Decision Making - Medical Decision Making 55 male with accidental insulin injection, patient monitored for 3 hours, patient has no significant blood glucose dropped here in the ER and can be discharged home - Lab Data Result diagrams: 12/26/20 01:12 Lab Results 12/26/20 12/26/20 Range/Units 00:45 01:12 WBC 9.4 (3.8-10.6) k/uL RBC 3.34 L (4.30-5.90) m/uL Hgb 11.0 L (13.0-17.5) gm/dL Hct 31.1 L (39.0-53.0) % MCV 93.2 (80.0-100.0) fL MCH 33.1 (25.0-35.0) pg MCHC 35.5 (31.0-37.0) g/dL RDW 12.8 (11.5-15.5) % Plt Count 319 (150-450) k/uL MPV 7.4 Neutrophils % 70 % Lymphocytes % 22 % Monocytes % 4 % Eosinophils % 2 % Basophils % 0 % Neutrophils # 6.6 (1.3-7.7) k/uL Lymphocytes # 2.1 (1.0-4.8) k/uL Monocytes # 0.4 (0-1.0) k/uL Eosinophils # 0.2 (0-0.7) k/uL Basophils # 0.0 (0-0.2) k/uL POC Glucose (mg/dL) 109 H (75-99) mg/dL POC Glu Medical Art Therapist ID Ray Pichardoine Disposition Clinical Impression: Accidental drug overdose Disposition: HOME SELF-CARE Condition: Good Instructions (If sedation given, give patient instructions): Adult Overdose (ED) Is patient prescribed a controlled substance at d/c from ED?: No Referrals: None,Stated [Primary Care Provider] - 1-2 days
[2020-12-26 00:55] LABS: Glucose,Whole Blood 109 mg/dL (75-99)
[2020-12-26 01:21] LABS: Basophils % (A) 0 %; Eosinophils # (A) 0.2 k/uL (0-0.7); Eosinophils % (A) 2 %; HCT 31.1 % (39.0-53.0); Lymphocytes # (A) 2.1 k/uL (1.0-4.8); Lymphocytes % (A) 22 %; MCH 33.1 pg (25.0-35.0); MCHC 35.5 g/dL (31.0-37.0); MCV 93.2 fL (80.0-100.0); Mean Platelet Volume 7.4; Monocytes # (A) 0.4 k/uL (0-1.0); Monocytes % (A) 4 %; Neutrophils # (A) 6.6 k/uL (1.3-7.7); Neutrophils % (A) 70 %; Platelet Count 319 k/uL (150-450); RBC 3.34 m/uL (4.30-5.90); RDW 12.8 % (11.5-15.5); WBC 9.4 k/uL (3.8-10.6)
[2020-12-26] MEDS ORDERED: NALOXONE 0.4 MG/ML 1 ML VIAL IV PRN (01:36)
[2020-12-26 01:37] LABS: African American GFR (CKD) >90 (>60 ml/min/1.73 sqM); Anion Gap 6 mmol/L; Blood Urea Nitrogen 24 mg/dL (9-20); Calcium 9.3 mg/dL (8.4-10.2); Carbon Dioxide 25 mmol/L (22-30); Chloride 103 mmol/L (98-107); Glucose 116 mg/dL (74-99); Magnesium 1.7 mg/dL (1.6-2.3); Non-African American GFR(CKD) >90 (>60 ml/min/1.73 sqM); Phosphorus 4.5 mg/dL (2.5-4.5); Sodium 134 mmol/L (137-145)
--- NOTE | 2020-12-26 01:38 | ED ---
Medical Decision Making - Medical Decision Making 55-year-old male to the ER were did present with insulin overdose, overdose with 60 units compared to 6, patient will be admitted for blood sugar monitoring and IV glucose supplementation - Lab Data Result diagrams: 12/26/20 01:12 12/26/20 01:12 Lab Results 12/26/20 12/26/20 12/26/20 Range/Units 00:45 01:12 01:12 WBC 9.4 (3.8-10.6) k/uL RBC 3.34 L (4.30-5.90) m/uL Hgb 11.0 L (13.0-17.5) gm/dL Hct 31.1 L (39.0-53.0) % MCV 93.2 (80.0-100.0) fL MCH 33.1 (25.0-35.0) pg MCHC 35.5 (31.0-37.0) g/dL RDW 12.8 (11.5-15.5) % Plt Count 319 (150-450) k/uL MPV 7.4 Neutrophils % 70 % Lymphocytes % 22 % Monocytes % 4 % Eosinophils % 2 % Basophils % 0 % Neutrophils # 6.6 (1.3-7.7) k/uL Lymphocytes # 2.1 (1.0-4.8) k/uL Monocytes # 0.4 (0-1.0) k/uL Eosinophils # 0.2 (0-0.7) k/uL Basophils # 0.0 (0-0.2) k/uL Potassium 4.0 (3.5-5.1) mmol/L POC Glucose (mg/dL) 109 H (75-99) mg/dL POC Glu Tray Drier Donna Ramirez Disposition Clinical Impression: Accidental drug overdose, Insulin overdose Disposition: ADMITTED IP TO THIS HOSP Condition: Serious Instructions (If sedation given, give patient instructions): Adult Overdose (ED) Referrals: None,Stated [Primary Care Provider] - 1-2 days
[2020-12-26 01:48] LABS: Glucose,Whole Blood 168 mg/dL (75-99)
[2020-12-26 01:51] LABS: ALT 18 U/L (4-49); AST 24 U/L (17-59); Albumin 3.7 g/dL (3.5-5.0); Alkaline Phosphatase 90 U/L (38-126); Total Bilirubin <0.1 mg/dL (0.2-1.3); Total Protein 6.2 g/dL (6.3-8.2)
[2020-12-26 02:48] LABS: Glucose,Whole Blood 151 mg/dL (75-99)
[2020-12-26 03:50] LABS: Glucose,Whole Blood 216 mg/dL (75-99)
[2020-12-26 06:06] LABS: Glucose,Whole Blood 235 mg/dL (75-99)
[2020-12-26 07:02] LABS: Glucose,Whole Blood 215 mg/dL (75-99)
[2020-12-26 08:02] VITALS: TEMP 98.1
[2020-12-26 08:03] LABS: Glucose,Whole Blood 232 mg/dL (75-99)
[2020-12-26] MEDS ORDERED: INSULIN ASPART (NovoLOG) 100 UNIT/ML VIAL SQ STA (08:33)
[2020-12-26 10:18] LABS: Glucose,Whole Blood 278 mg/dL (75-99)
[2020-12-26 11:38] LABS: Glucose,Whole Blood 222 mg/dL (75-99)
[2020-12-26 11:51] VITALS: BP 136/74; PULSE 83; RESP 20
--- NOTE | 2020-12-26 13:53 | P.HPIM ---
History of Present Illness Patient is pleasant 55-year-old the female was admitted the drug rehabilitation facility. Patient has been clean for 4 more than 200 days. Patient was sent in here because of accidental use of for 6 units of insulin instead of 6 units of short-acting insulin. Patient was admitted for overnight monitoring. Patient last few blood sugars are consistently in 200s. Patient is presently not on any D5. Patient is having some cough, does have some mild expiratory wheezing patient does use inhalers at home patient cough is nonproductive. REVIEW OF SYSTEMS: CONSTITUTIONAL: No fever, no malaise, no fatigue. HEENT: No recent visual problems or hearing problems. Denied any sore throat. CARDIOVASCULAR: No chest pain, orthopnea, PND, no palpitations, no syncope. PULMONARY: No shortness of breath, nno hemoptysis. GASTROINTESTINAL: No diarrhea, no nausea, no vomiting, no abdominal pain. NEUROLOGICAL: No headaches, no weakness, no numbness. HEMATOLOGICAL: Denies any bleeding or petechiae. GENITOURINARY: Denies any burning micturition, frequency, or urgency. MUSCULOSKELETAL/RHEUMATOLOGICAL: Denies any joint pain, swelling, or any muscle pain. ENDOCRINE: Denies any polyuria or polydipsia. The rest of the 14-point review of systems is negative. PHYSICAL EXAMINATION: GENERAL: The patient is alert and oriented x3, not in any acute distress. Well developed, well nourished. HEENT: Pupils are round and equally reacting to light. EOMI. No scleral icterus. No conjunctival pallor. Normocephalic, atraumatic. No pharyngeal erythema. No thyromegaly. CARDIOVASCULAR: S1 and S2 present. No murmurs, rubs, or gallops. PULMONARY: Mild expiratory wheezing ABDOMEN: Soft, nontender, nondistended, normoactive bowel sounds. No palpable organomegaly. MUSCULOSKELETAL: No joint swelling or deformity. EXTREMITIES: No cyanosis, clubbing, or pedal edema. NEUROLOGICAL: Gross neurological examination did not reveal any focal deficits. SKIN: No rashes. Assessment and plan -Unintentional overdose a short-acting insulin: Patient last few blood sugars are higher. 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 Past Medical History Past Medical History: Coronary Artery Disease (CAD), COPD, CVA/TIA, Diabetes Mellitus, Eye Disorder, GERD/Reflux, Hyperlipidemia, Hypertension, Pneumonia, Renal Disease Additional Past Medical History / Comment(s): IDDM type II, neuropathy bilateral hands/legs and feet, TIA, bilateral glaucoma, benign colon polyps, recent constipation, nephrolithiasis-passed on his own, chronic low back pain-PT REQUESTS NO NARCOTICS TO BE GIVEN TO HIM. History of Any Multi-Drug Resistant Organisms: MRSA Date of last positivie culture/infection: 11/23/19 MDRO Source:: MRSA KNEE Past Surgical History: Heart Catheterization Additional Past Surgical History / Comment(s): Colonoscopy with benign polypectomies. Past Anesthesia/Blood Transfusion Reactions: No Reported Reaction Past Psychological History: Anxiety, Depression Smoking Status: Current every day smoker Past Alcohol Use History: None Reported Past Drug Use History: Opiates, Prescription Drug Abuse - Past Family History Father Family Medical History: Cancer Additional Family Medical History / Comment(s): Father from cancer-pt cannot recall type. Mother Family Medical History: No Reported History Additional Family Medical History / Comment(s): Mother lived to be 83 yrs old. Medications and Allergies Home Medications Medication Instructions Recorded Confirmed Type Acetaminophen [Tylenol Arthritis] 650 mg PO Q4H 11/18/19 12/26/20 History Chlorpheniramine Maleate 4 mg PO Q4H PRN 11/18/19 12/26/20 History [Chlor-Trimeton] Ibuprofen [Motrin] 600 mg PO Q6H PRN 11/18/19 12/26/20 History Multivitamins, Thera [Multivitamin 1 tab PO DAILY@0600 11/18/19 12/26/20 History (formulary)] carvediloL [Coreg] 6.25 mg PO BID@0600,1730 11/18/19 12/26/20 History metFORMIN HCL [Glucophage] 1,000 mg PO BID@0600,1730 11/18/19 12/26/20 History traZODone HCL 50 - 150 mg PO HS 11/18/19 12/26/20 History Insulin Detemir (Levemir) [Levemir] 20 unit SQ HS@2130 11/22/19 12/26/20 History Insulin Regular, Human [NovoLIN R] See Protocol SQ ACHS 12/26/20 12/26/20 History Loratadine [Claritin] 10 mg PO DAILY@0612/26/20 12/26/20 History Thiamine [Vitamin B-1] 100 mg PO DAILY@59912/26/20 12/26/20 History Allergies Allergy/AdvReac Type Severity Reaction Status Date / Time lisinopril Allergy Unknown Verified 12/26/20 07:14 Physical Exam Vitals: Vital Signs Temp Pulse Resp BP Pulse Ox 12/26/20 11:50 83 20 136/74 96 12/26/20 08:01 98.1 F 77 16 159/77 98 12/26/20 04:32 88 20 138/80 96 12/26/20 01:52 80 20 135/74 94 L 12/26/20 00:47 97.8 F 73 18 146/77 96 Intake and Output 12/25/20 12/26/20 12/26/20 22:59 06:59 14:59 Other: Weight 223 kg Results CBC & Chem 7: 12/26/20 01:12 12/26/20 01:12 Labs: Abnormal Lab Results - Last 24 Hours (Table) 12/26/20 12/26/20 12/26/20 Range/Units 00:45 01:12 01:12 RBC 3.34 L (4.30-5.90) m/uL Hgb 11.0 L (13.0-17.5) gm/dL Hct 31.1 L (39.0-53.0) % Sodium 134 L (137-145) mmol/L BUN 24 H (9-20) mg/dL Creatinine 0.62 L (0.66-1.25) mg/dL Glucose 116 H (74-99) mg/dL POC Glucose (mg/dL) 109 H (75-99) mg/dL Total Bilirubin <0.1 L (0.2-1.3) mg/dL Total Protein 6.2 L (6.3-8.2) g/dL 12/26/20 12/26/20 12/26/20 Range/Units 01:46 02:46 03:48 RBC (4.30-5.90) m/uL Hgb (13.0-17.5) gm/dL Hct (39.0-53.0) % Sodium (137-145) mmol/L BUN (9-20) mg/dL Creatinine (0.66-1.25) mg/dL Glucose (74-99) mg/dL POC Glucose (mg/dL) 168 H 151 H 216 H (75-99) mg/dL Total Bilirubin (0.2-1.3) mg/dL Total Protein (6.3-8.2) g/dL 12/26/20 12/26/20 12/26/20 Range/Units 06:05 07:01 08:01 RBC (4.30-5.90) m/uL Hgb (13.0-17.5) gm/dL Hct (39.0-53.0) % Sodium (137-145) mmol/L BUN (9-20) mg/dL Creatinine (0.66-1.25) mg/dL Glucose (74-99) mg/dL POC Glucose (mg/dL) 235 H 215 H 232 H (75-99) mg/dL Total Bilirubin (0.2-1.3) mg/dL Total Protein (6.3-8.2) g/dL 12/26/20 12/26/20 Range/Units 10:16 11:37 RBC (4.30-5.90) m/uL Hgb (13.0-17.5) gm/dL Hct (39.0-53.0) % Sodium (137-145) mmol/L BUN (9-20) mg/dL Creatinine (0.66-1.25) mg/dL Glucose (74-99) mg/dL POC Glucose (mg/dL) 278 H 222 H (75-99) mg/dL Total Bilirubin (0.2-1.3) mg/dL Total Protein (6.3-8.2) g/dL
--- NOTE | 2020-12-26 13:54 | P.DS ---
Providers Date of admission: 12/26/20 01:38 Attending physician: Vanesa Kamara Primary care physician: Stated None Hospital Course: Please refer to HPI for further details Patient Condition at Discharge: Serious Plan - Discharge Summary New Discharge Prescriptions: Continue metFORMIN HCL [Glucophage] 1,000 mg PO BID@0600,1730 traZODone HCL 50 - 150 mg PO HS Ibuprofen [Motrin] 600 mg PO Q6H PRN PRN Reason: Pain Chlorpheniramine Maleate [Chlor-Trimeton] 4 mg PO Q4H PRN PRN Reason: Allergy Symptoms Acetaminophen [Tylenol Arthritis] 650 mg PO Q4H carvediloL [Coreg] 6.25 mg PO BID@0600,1730 Multivitamins, Thera [Multivitamin (formulary)] 1 tab PO DAILY@0600 Insulin Detemir (Levemir) [Levemir] 20 unit SQ HS@2130 Insulin Regular, Human [NovoLIN R] See Protocol SQ ACHS Loratadine [Claritin] 10 mg PO DAILY@0600 Thiamine [Vitamin B-1] 100 mg PO DAILY@0600 Discharge Medication List Acetaminophen [Tylenol Arthritis] 650 mg PO Q4H 11/18/19 [History] Chlorpheniramine Maleate [Chlor-Trimeton] 4 mg PO Q4H PRN 11/18/19 [History] Ibuprofen [Motrin] 600 mg PO Q6H PRN 11/18/19 [History] Multivitamins, Thera [Multivitamin (formulary)] 1 tab PO DAILY@0600 11/18/19 [History] carvediloL [Coreg] 6.25 mg PO BID@0600,1730 11/18/19 [History] metFORMIN HCL [Glucophage] 1,000 mg PO BID@0600,1730 11/18/19 [History] traZODone HCL 50 - 150 mg PO HS 11/18/19 [History] Insulin Detemir (Levemir) [Levemir] 20 unit SQ HS@2130 11/22/19 [History] Insulin Regular, Human [NovoLIN R] See Protocol SQ ACHS 12/26/20 [History] Loratadine [Claritin] 10 mg PO DAILY@0600 12/26/20 [History] Thiamine [Vitamin B-1] 100 mg PO DAILY@0600 12/26/20 [History] Follow up Appointment(s)/Referral(s): None,Stated [Primary Care Provider] - 1-2 days Patient Instructions/Handouts: Adult Overdose (ED) Discharge Disposition: OTHER INSTITUTION NOT DEFINED
== END 2020-12-26 12:00 | disposition home or self-care (01) ==
LOC: EC 00:42 → 6NMEDSUR 01:38
PROVIDERS: ADMIT Hospitalist; ATTEND Hospitalist
DX: T38.3X1A Poisoning by insulin and oral hypoglycemic [antidiabetic] drugs, accidental (unintentional), initial encounter (principal); E11.9 Type 2 diabetes mellitus without complications; E78.5 Hyperlipidemia, unspecified; E86.1 Hypovolemia; E87.1 Hypo-osmolality and hyponatremia; F17.200 Nicotine dependence, unspecified, uncomplicated; F32.9 Major depressive disorder, single episode, unspecified; F41.9 Anxiety disorder, unspecified; I10 Essential (primary) hypertension; I25.10 Atherosclerotic heart disease of native coronary artery without angina pectoris; J44.1 Chronic obstructive pulmonary disease with (acute) exacerbation; K21.9 Gastro-esophageal reflux disease without esophagitis; Z79.4 Long term (current) use of insulin; Z79.899 Other long term (current) drug therapy; Z80.9 Family history of malignant neoplasm, unspecified; Z86.73 Personal history of transient ischemic attack (TIA), and cerebral infarction without residual deficits; Z87.19 Personal history of other diseases of the digestive system; Z87.442 Personal history of urinary calculi
CPT/HCPCS: 99285; 96365; 96376; 96366; 36415; 80053; 83735; 84100; 85025; G0378